=== PATIENT | female | born 1935 | race Caucasian/White ===

== ENCOUNTER → 2017-02-09 | Outpatient (CLI) | payer OTHER | END | disposition home or self-care (01) | DX: R26.2 Difficulty in walking, not elsewhere classified (principal); M25.561 Pain in right knee; M62.81 Muscle weakness (generalized); M25.661 Stiffness of right knee, not elsewhere classified | CPT/HCPCS: 97110 GP; 97150 GO; 97161 GP; 97165 GO; G8978 GP; G8979 GP; G8980 GP; G8987 GO; G8988 GO; G8989 GO ==

== ENCOUNTER 2017-02-22 05:12 | Inpatient (IN) | payer OTHER ==
[~2017-02-22] VITALS: Ht 167.6 cm; Wt 83.9 kg
[~2017-02-22 05:12] MED LIST: ASPIR 8181 M1 PO; ESTRACE CREAM VG; FERROUS SULFAT325 MG PO; LEVO-T112 MCG PO; LISINOPRIL20 MG PO; TUMS ULTRA1000 MG PO; TUMS500 MG PO; VITAMIN D2000 UNIT PO
[2017-02-22 05:49] VITALS: BP 128/62
[2017-02-22 12:09] LABS: INTER. NORMALIZED RATIO 1.1
[2017-02-22 12:22] VITALS: BP 123/56
[2017-02-22 14:06] VITALS: BP 107/57
[2017-02-22] MEDS ORDERED: PERCOCET 5/31 TABLET PO (14:42)
[2017-02-22] MEDS ORDERED: VISTARIL25 MG PO (14:42)
[2017-02-22] MEDS ORDERED: COUMADIN2.5 MG PO (14:42)
[2017-02-22 16:06] VITALS: BP 99/50
[2017-02-22 18:10] VITALS: BP 98/52
[2017-02-22 20:25] VITALS: BP 114/51
[2017-02-23 00:17] VITALS: BP 98/68
[2017-02-23 03:59] VITALS: BP 98/65
[2017-02-23 05:41] LABS: HEMATOCRIT 26.3 % (36.0-46.0); MCV 99.6 FL (83-99)
[2017-02-23 05:49] LABS: INTER. NORMALIZED RATIO 1.1; PROTHROMBIN TIME 11.4 (9.2-11.2)
[2017-02-23 05:57] LABS: ANION GAP 6 MEQ/L (2-14); CHLORIDE 100 MEQ/L (99-109); GFR ESTIMATE (CALCULATED) 38 mL/min/; GLUCOSE 104 mg/dL (70-99); POTASSIUM 4.1 MEQ/L (3.7-5.4); SAMPLE HEMOLYSIS CHECK 0; SAMPLE ICTERIC CHECK 0; SAMPLE LIPEMIA CHECK 0; SODIUM 132 MEQ/L (136-147); UREA NITROGEN (BUN) 20 mg/dL (9-23)
[2017-02-23 08:16] VITALS: BP 110/56
[2017-02-23 11:56] VITALS: BP 98/51
[2017-02-23 15:54] VITALS: BP 109/53
[2017-02-23 20:23] VITALS: BP 106/56
[2017-02-24 00:11] VITALS: BP 90/45
[2017-02-24 04:08] VITALS: BP 116/57
[2017-02-24 05:53] LABS: HEMATOCRIT 24.5 % (36.0-46.0); MCV 97.2 FL (83-99)
[2017-02-24 06:08] LABS: INTER. NORMALIZED RATIO 1.5
[2017-02-24 08:00] VITALS: BP 97/47
[2017-02-24 12:02] VITALS: BP 109/70
== END 2017-02-24 15:10 | DRG 470 ==
LOC: 2SOUTH 05:12 → 3WEST 11:55 → 2SOUTH 12:01 → 3WEST 02-24 15:10
PROVIDERS: Orthopaedic Surgery
PROC: 0SRC0J9 Replacement of Right Knee Joint with Synthetic Substitute, Cemented, Open Approach (ICD-10-PCS; principal; 2017-02-22)
DX: M17.11 Unilateral primary osteoarthritis, right knee (principal); E87.1 Hypo-osmolality and hyponatremia; I10 Essential (primary) hypertension; E03.9 Hypothyroidism, unspecified; I34.0 Nonrheumatic mitral (valve) insufficiency; Z87.891 Personal history of nicotine dependence; Z79.82 Long term (current) use of aspirin
CPT/HCPCS: 80048; 85014; 85018; 85610; 88304; C1713; J0690; J1885; J2405; J7040; J7050; J7120

== ENCOUNTER 2017-09-27 10:29 | Inpatient (IN) | payer OTHER ==
[~2017-09-27] VITALS: Ht 167.6 cm; Wt 86.0 kg
[~2017-09-27 10:29] MED LIST changes: +COUMADIN2.5 MG PO; -ESTRACE CREAM VG; +ESTRACE42.5 GM VG; +LIORESAL10 MG PO; +MEDROL DOSEPAK4 MG PO; +NORCO 5/3251 TABLET PO; +PERCOCET 5/31 TABLET PO; +VISTARIL25 MG PO
[2017-10-19 07:24] VITALS: BP 175/75
[2017-10-19 13:15] VITALS: BP 115/59
[2017-10-19 15:57] VITALS: BP 132/54
[2017-10-19 15:59] VITALS: BP 132/54
[2017-10-19 18:00] VITALS: BP 118/56
[2017-10-19 20:47] VITALS: BP 98/55
[2017-10-20] VITALS: BP 117/58
[2017-10-20 04:15] VITALS: BP 97/56
[2017-10-20 06:58] LABS: HEMATOCRIT 28.4 % (36.0-46.0)
[2017-10-20 07:29] LABS: ANION GAP 6 MEQ/L (2-14); CHLORIDE 103 MEQ/L (99-109); GFR ESTIMATE (CALCULATED) 46 mL/min/; GLUCOSE 117 mg/dL (70-99); POTASSIUM 4.5 MEQ/L (3.7-5.4); SAMPLE HEMOLYSIS CHECK 0; SAMPLE ICTERIC CHECK 0; SAMPLE LIPEMIA CHECK 0; SODIUM 134 MEQ/L (136-147); UREA NITROGEN (BUN) 14 mg/dL (9-23)
[2017-10-20 08:00] VITALS: BP 96/44
[2017-10-20 15:44] VITALS: BP 100/50
[2017-10-20 20:15] VITALS: BP 126/58
[2017-10-21 00:30] VITALS: BP 116/56
[2017-10-21 04:00] VITALS: BP 140/66
[2017-10-21 06:25] LABS: HEMATOCRIT 30.4 % (36.0-46.0); MCV 96.8 FL (83-99)
[2017-10-21 08:26] VITALS: BP 131/60
[2017-10-21] MEDS ORDERED: ELIQUIS2.5 MG PO (08:26)
[2017-10-21] MEDS ORDERED: HYDROCODON-ACE1 EAC7 PO (08:26)
[2017-10-21] MEDS ORDERED: CELECOXIB200 MG PO (08:26)
[2017-10-21] MEDS ORDERED: CELEBREX200 MG PO (08:33)
[2017-10-21 12:02] VITALS: BP 122/50
== END 2017-10-21 13:57 | DRG 470 ==
LOC: 2SOUTH 10:29 → ENRESERV 10-18 21:21 → 2SOUTH 10-19 06:38 → ENRESERV 10-19 08:03 → 2SOUTH 10-19 08:26 → 3WEST 10-19 13:10 → 2SOUTH 10-19 15:18 → 3WEST 10-21 13:57
PROVIDERS: Orthopaedic Surgery
PROC: 0SRD0J9 Replacement of Left Knee Joint with Synthetic Substitute, Cemented, Open Approach (ICD-10-PCS; principal; 2017-10-19)
DX: M17.12 Unilateral primary osteoarthritis, left knee (principal); I10 Essential (primary) hypertension; E89.0 Postprocedural hypothyroidism; K21.9 Gastro-esophageal reflux disease without esophagitis; Z96.651 Presence of right artificial knee joint; Z79.82 Long term (current) use of aspirin; Z87.891 Personal history of nicotine dependence
CPT/HCPCS: 80048; 85014; 85018; 86850; 86900; 86901; C1713; J0131; J0690; J1885; J2250; J2405; J3010; J7050; J7120